=== PATIENT | male | born 1955 | race Caucasian/White ===

== ENCOUNTER 2018-10-16 08:27 | Emergency (ER) | payer SELFPAY ==
[~2018-10-16] VITALS: Ht 177.8 cm; Wt 70.9 kg
[2018-10-16 08:59] VITALS: BP 179/117
[2018-10-16] MEDS ORDERED: ketorolac trometh inj. 60 MG/2 ML VIAL IM ONE (09:25)
--- NOTE | 2018-10-16 09:35 | NUR ---
Patient states that he has a car and that he is not staying up in [place] due to the [facility] being [place]. [place] that [place]. He has money for gas and food. Patient denies any need or want for assistance.
== END 2018-10-16 09:37 | disposition home or self-care (01) ==
LOC: ER 08:28
DX: G89.29 Other chronic pain (principal); M54.5 Low back pain; I50.9 Heart failure, unspecified; F17.200 Nicotine dependence, unspecified, uncomplicated; Z59.0 Homelessness
CPT/HCPCS: 96372; 99283; J1885

== ENCOUNTER 2018-10-25 09:50 | Inpatient (IN) | payer MEDICARE, MEDICAID | END 2018-10-27 12:09 | disposition home or self-care (01) | LOC: ER 09:50 → ED HOLD 16:44 → PCU 3S 20:05 | DX: I50.23 Acute on chronic systolic (congestive) heart failure (principal); J96.00 Acute respiratory failure, unspecified whether with hypoxia or hypercapnia; J18.9 Pneumonia, unspecified organism; Y95 Nosocomial condition ==